=== PATIENT | male | born 1945 | race Caucasian/White ===

== ENCOUNTER → 2016-05-31 | Outpatient (CLI) | payer OTHER, MEDICARE | LOC: RAD 10:23 | PROVIDERS: ATTEND Nurse Practitioner Family | DX: M25.512 Pain in left shoulder (principal) | CPT/HCPCS: 99213 ==

== ENCOUNTER → 2016-05-31 | Outpatient (CLI) | payer OTHER, MEDICARE | LOC: MMPC 09:00 | PROVIDERS: ATTEND Nurse Practitioner Family | DX: M25.512 Pain in left shoulder (principal) ==

== ENCOUNTER → 2016-06-02 | Outpatient (CLI) | payer OTHER, MEDICARE ==
--- NOTE | 2016-06-02 11:20 | DI ---
MRI UP EXTREMITY JNT W/O CN,06/02/2016 9:49 AM: Clinical History: Acute left shoulder pain. Previous Exam: None at this facility. Findings: Multiplanar MR images are obtained through the left shoulder without contrast. There is degenerative hypertrophy of the left acromioclavicular joint with mass effect on the underly ing supraspinatus tendon. The glenohumeral joint is unremarkable. There are some cystic changes involving the distal lateral portion of the acromion process. There are some cystic changes on the undersurface of the rotator cuff on the greater tubercle of the left prox imal humerus. Rotator cuff: There is a bursal surface tear of the distal supraspinatus tendon near its attachment o n the greater tubercle. This is only a partial thickness tear, but involves approximately 60% of the thickness of the supraspinatus tendon. There is also interstitial tearing extending along the suprasp inatus. There is some interstitial tearing of the infraspinatus tendon as well with some interstitial footpla te tear and at the attachment of the infraspinatus on the greater tubercle manifest by cysts within t he proximal humerus. There is a trace amount of fluid within the long head of the biceps tendon. The subscapularis tendon and teres minor tendons are intact. There is some thickening of the coracoacromial ligament within the rotator cuff interval. The major vascular flow voids are unremarkable. There is some complex signal involving the posterior inferior margin of the glenoid with some subchon dral cyst formation. Impression: 1. Lateral downsloping of the acromion process with cystic changes involving the distal margin of the acromion and the corresponding contact area on the greater tubercle consistent with an impingement p rocess. 2. Partial thickness tear of the distal supraspinatus tendon near its attachment on the greater tuber hever. This involves approximately 60% of the thickness of the supraspinatus tendon from the bursal marilin face. 3. Degenerative hypertrophy of the acromioclavicular joint and into the impingement. 4. Interstitial tears of the myotendinous junctions of the supraspinatus and infraspinatus tendons. 5. Mild irregularity of the posterior inferior margin of the glenoid most likely representing a prior Bankart lesion.
--- NOTE | 2016-06-02 12:13 | DI ---
XR SHOULDER MIN 2VW,06/02/2016 10:40 AM: Clinical History: Left shoulder pain. Previous Exam: MRI upper extremity performed on the same date. Findings: Multiple views of the left shoulder are obtained, and demonstrate degenerative hypertrophy of the lef t acromioclavicular joint. There is some irregularity of the undersurface of the left glenoid. The adjacent left lung and chest wall are unremarkable. Impression: 1. 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 2. 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
== END ==
LOC: MRI 09:40
PROVIDERS: ATTEND Nurse Practitioner Family
DX: M25.512 Pain in left shoulder (principal); M19.012 Primary osteoarthritis, left shoulder; S46.012A Strain of muscle(s) and tendon(s) of the rotator cuff of left shoulder, initial encounter
CPT/HCPCS: 73030; 73221

== ENCOUNTER → 2016-08-09 | Outpatient (CLI) | payer OTHER, MEDICARE ==
[2016-08-09 07:33] LABS: BASOPHILS # (AUTO) 0.05 10*3/UL; BASOPHILS % (AUTO) 0.5 % (0-1); EOSINOPHILS # (AUTO) 0.36 10*3/UL; EOSINOPHILS % (AUTO) 3.4 % (0-8); HEMATOCRIT 50.4 % (42.0-52.0); HEMOGLOBIN 17.7 g/dL (14.0-18.0); LYMPHOCYTES # (AUTO) 2.79 10*3/uL; MEAN CORPUSCULAR HEMOGLOBIN 30.9 PG (27-31); MEAN CORPUSCULAR HGB CONC 35.1 g/dL (33-37); MEAN PLATELET VOLUME 9.3 FL (7.4-12.2); MONOCYTES # (AUTO) 1.29 10*3/UL (0.3-0.8); NEUTROPHILS # (AUTO) 6.18 10*3/UL; NEUTROPHILS % (AUTO) 57.6 % (50-80); PLATELET MORPHOLOGY COMMENT NORMAL MORPHOLOGY (NORM); RBC MORPHOLOGY COMMENT NORMAL MORPHOLOGY (NORM); RED BLOOD COUNT 5.73 10^6/uL (4.70-6.10); WBC MORPHOLOGY COMMENT NORMAL MORPHOLOGY (NORM)
[2016-08-09 07:38] LABS: BLOOD UREA NITROGEN 18 mg/dL (7-22); CALCIUM 9.6 mg/dL (8.7-10.7); EST GLOMERULAR FILTRATION > 60 (>60 ml/min/1.73m(2)); SERUM ALBUMIN 4.4 g/dL (3.5-4.8)
[2016-08-09 07:41] LABS: HEMOGLOBIN A1C 6.48 % (4.2-6.0)
--- NOTE | 2016-08-09 08:27 | DI ---
PA /LATERAL CHEST X-RAY, 08/09/2016 7:09 AM : Clinical History: Essential hypertension. Previous Exam: None at this facility. There is no acute soft tissue or bony abnormality. Heart size is normal. There is no acute infiltrate or effusion. There is a curvilinear soft tissue density in the right cardiophrenic angle that probab ly is located anteriorly based on the lateral view. This has the density of fat tissue and may repres ent an anterior right-sided diaphragmatic hernia with herniation of mesenteric fat. Mediastinal struc tures are normal. There are no pulmonary nodules. Reading: Normal chest x-ray. 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
== END ==
LOC: LAB 07:04
PROVIDERS: ATTEND Nurse Practitioner Family
DX: M25.512 Pain in left shoulder (principal); I10 Essential (primary) hypertension; E11.9 Type 2 diabetes mellitus without complications; I25.10 Atherosclerotic heart disease of native coronary artery without angina pectoris; K21.9 Gastro-esophageal reflux disease without esophagitis
CPT/HCPCS: 36415; 71020; 80053; 83036; 85025

== ENCOUNTER → 2016-08-10 | Outpatient (CLI) | payer OTHER, MEDICARE ==
[2016-08-10 14:49] LABS: CREATININE, URINE 61.8 MG/DL (15-500)
== END ==
LOC: MOB LAB 13:48
PROVIDERS: ATTEND Nurse Practitioner Family
DX: E11.9 Type 2 diabetes mellitus without complications (principal); R80.9 Proteinuria, unspecified
CPT/HCPCS: 82043

== ENCOUNTER → 2016-08-24 | Outpatient (CLI) | payer OTHER, MEDICARE | LOC: MMPC 09:00 | PROVIDERS: ATTEND Nurse Practitioner Family | DX: R80.9 Proteinuria, unspecified (principal); E11.9 Type 2 diabetes mellitus without complications | CPT/HCPCS: 99214; G0463 ==

== ENCOUNTER → 2016-11-09 | Outpatient (CLI) | payer OTHER, MEDICARE ==
[2016-11-09 10:14] LABS: CREATININE, URINE 65.6 MG/DL (15-500)
[2016-11-09 10:24] LABS: CALCIUM 9.6 mg/dL (8.7-10.7); SERUM ALBUMIN 4.2 g/dL (3.5-4.8)
[2016-11-09 10:30] LABS: HEMOGLOBIN A1C 5.95 % (4.2-6.0)
== END ==
LOC: LAB 09:38
PROVIDERS: ATTEND Nurse Practitioner Family
DX: E11.9 Type 2 diabetes mellitus without complications (principal); I10 Essential (primary) hypertension; E78.5 Hyperlipidemia, unspecified; R80.9 Proteinuria, unspecified; F17.200 Nicotine dependence, unspecified, uncomplicated
CPT/HCPCS: 36415; 80053; 82043; 83036